=== PATIENT | female | born 1935 | race African-American/Black ===

== ENCOUNTER → 2022-09-09 08:07 | Outpatient (CLI) | payer MEDICARE, SELFPAY ==
--- NOTE | ~2022-09-09 | MR_ITS ---
MRI of the lumbar spine Clinical History: Back pain Technique: Axial T2-weighted images, and sagittal T1-weighted, T2-weighted, and T2 fat-sat images wer e acquired. Findings: There is no fracture or subluxation of the lumbar spine. There is minimal reversal of the n ormal lumbar lordosis. No suspicious bone marrow signal abnormality identified. At L1-L2, there is minimal disc bulge and mild facet arthropathy. No spinal canal stenosis or neural foraminal narrowing. At L2-L3, there is disc bulge and facet arthropathy, with minimal central canal stenosis. There is mi nimal bilateral neural foraminal narrowing. At L3-L4, disc bulge and facet arthropathy are present. No pat central canal stenosis. There is mod erate left neural foraminal narrowing. Right neural foramen preserved. At L4-L5, there is diffuse disc bulge with probable superimposed disc protrusion. Facet arthropathy a lso contributes to severe thecal sac compression/spinal canal stenosis at this level. There is modera te bilateral neural foraminal narrowing, left worse than right. At L5-S1, there is advanced facet arthropathy with minimal disc bulge. There is minimal central canal stenosis. Bilateral neural foramina are preserved. Paravertebral soft tissues are unremarkable. Impression: Severe degenerative spondylosis at L4-L5, as detailed above. Mild to moderate degenerative change at the remaining lumbar levels, as detailed above. Reviewed, dictated and finalized at [facility]. Impression: Severe degenerative spondylosis at L4-L5, as detailed above. Mild to moderate degenerative change at the remaining lumbar levels, as detaile d above.
== END ==
PROVIDERS: PCP Family Medicine; Visit Provider Nurse Practitioner Family
DX: M47.896 Other spondylosis, lumbar region (principal)
CPT/HCPCS: 72148

== ENCOUNTER 2023-02-04 09:21 | Outpatient (CLI) | payer MEDICARE, SELFPAY ==
--- NOTE | ~2023-02-04 | XR_ITS ---
Right wrist Technique: PA and lateral views were obtained. Clinical History: Pain Findings: No acute fracture or dislocation is seen. Osseous alignment is anatomic. Joint spaces are p reserved. Soft tissues are unremarkable. Impression: Unremarkable right wrist radiographs. Reviewed, dictated and finalized at location [facility]. Impression: Unremarkable right wrist radiographs.
--- NOTE | ~2023-02-04 | XR_ITS ---
Right Shoulder Technique: AP and scapular Y views were obtained. Clinical History: Pain Findings: No fracture or dislocation is seen. Osseous alignment is anatomic. The glenohumeral and acr omioclavicular joint spaces are preserved. Soft tissues are unremarkable. Impression: Unremarkable right shoulder radiographs. Reviewed, dictated and finalized at [facility]. Impression: Unremarkable right shoulder radiographs.
--- NOTE | ~2023-02-04 | XR_ITS ---
Right elbow Technique: AP and lateral views were obtained. Clinical History: Pain Findings: No acute fracture or dislocation is seen. Osseous alignment is anatomic. Joint spaces are p reserved. There is no displacement of the fat pads, and soft tissues are unremarkable. Impression: Unremarkable radiographs. Reviewed, dictated and finalized at location . Impression: Unremarkable radiographs.
== END 2023-02-04 09:22 | disposition home or self-care (01) ==
PROVIDERS: PCP Family Medicine; Visit Provider Physician Assistant Medical
DX: M25.511 Pain in right shoulder (principal); M25.521 Pain in right elbow; M25.531 Pain in right wrist
CPT/HCPCS: 73030; 73070; 73100